=== PATIENT | female | born 1955 | race Caucasian/White ===

== ENCOUNTER 2019-02-13 20:35 | Emergency (ER) | payer OTHER, SELFPAY ==
[2019-02-13 20:38] VITALS: BP 157/77; PULSE 93; RESP 18; TEMP 36.7; O2SAT 93
--- NOTE | 2019-02-13 23:04 | ED_ITS ---
HPI - Neuro Symptoms/Deficit General Chief Complaint: Neuro Symptoms/Deficit Stated Complaint: RIGHT ARM NUMBNESS Time Seen by Provider: 02/13/19 23:04 Source: patient Mode of arrival: Ambulatory Limitations: no limitations History of Present Illness HPI Narrative: The patient awoke 3 days ago with right arm numbness or weakness. Symptoms resolved. Since then she has had intermittent numbness, but no weakness. She has no associated facial numbness weakness. She has no visual changes. She has no facial droop. She has no speech changes. She has not been confused. She has had no right lower extremity numbness or weakness. She has diabetes and hyperlipidemia. She has no history of CAD, arrhythmia, TIA or CVA she has no hypertension. She is a nonsmoker. She has had no history of head or neck injury. She is currently asymptomatic. On Anticoagulants: No Related Data Allergies Allergy/AdvReac Type Severity Reaction Status Date / Time No Known Drug Allergies Allergy Verified 02/13/19 20:42 Review of Systems Review of Systems ROS Unobtainable: All systems reviewed & are unremarkable except as noted in HPI and below Constitutional Constitutional: Denies chills, Denies fever(s) and Denies weakness Eyes Eyes: Denies change in vision, Denies eye discharge, Denies irritation and Denies loss of vision ENT Ears, Nose, Mouth, and Throat: Denies dysphagia, Denies vertigo, Denies dizziness, Denies neck pain and Denies disequilibrium Cardiovascular Cardiovascular: Denies chest pain, Denies irregular heart rhythm, Denies lightheadedness, Denies palpitations, Denies dyspnea and Denies orthopnea Respiratory Respiratory: Denies cough, Denies dyspnea and Denies wheezing Gastrointestinal Gastrointestinal: Denies dysphagia Musculoskeletal Musculoskeletal: Denies back pain, Denies myalgias and Denies neck pain Integumentary/Breasts Skin/Breast: Denies pruritus, Denies erythema, Denies rash and Denies wounds Neurologic Neurologic: Reports as per HPI, Denies confusion, Denies vertigo, Denies diz ziness, Denies loss of vision, Reports sensory deficit, Denies tremor(s), Denies disequilibrium and Denies weakness Psychiatric Psychiatric: Denies anxiety, Denies confusion and Denies depression Endocrine Endocrine: Denies palpitations Allergic/Immunologic Allergic/Immunologic: Denies wheezing Patient History Medical History (Updated 02/14/19 @ 01:16 by Dixon Dash MD) Diabetes (Acute) Hyperlipidemia (Acute) Surgical History (Updated 02/13/19 @ 23:18 by Dixon Dash MD) No significant past surgical history (Acute) Social History Smoking Status: Never smoker Smoking Status: Never smoker Exam Initial Vital Signs Initial Vital Signs: Vital Signs Temperature 98.0 F 02/13/19 20:38 Pulse Rate 93 H 02/13/19 20:38 Respiratory Rate 18 02/13/19 20:38 Blood Pressure 157/77 H 02/13/19 20:38 Pulse Oximetry 93 02/13/19 20:38 Const General: cooperative and well developed Nutritional Appearance: well nourished Orientation: alert, awake, oriented x3 and not confused HENMT Head: normocephalic and atraumatic Nose: external nose normal Face and sinus: face symmetric Mouth: oral mucosae normal and moist mucous membranes Throat: posterior oropharynx normal, tonsils normal and uvula midline Eyes General: appearance normal, both eyes and all related structures Eyelids: eyelids normal Conjunctivae: conjunctivae normal Sclera: sclerae normal Pupils: PERRL EOM: EOM intact bilaterally Neck Neck: normal visual inspection, trachea midline, No lymphadenopathy, No midline deformity and No JVD Lymphatic: No lymphedema Chest Chest: normal inspection of the chest Resp Effort & Inspection: normal respiratory effort and able to speak in complete sentences Auscultation: clear to auscultation bilaterally, no rales, no rhonchi and no wheezes Cardio Rate: regular rate Rhythm: regular rhythm Heart Sounds: S1 normal, S2 normal, no click, no gallops, no murmurs and no rubs Pulses: normal peripheral pulses GI Inspection: non-distended Palpation: soft, no hepatosplenomegaly, No guarding, No pulsatile mass and No tender Auscultation: normal bowel sounds Back/Spine/Pelvis Back: No CVA tenderness Cervical Spine: cervical ROM normal and No pain with cervical ROM Thoracic/Lumbar Spine: thoracic and lumbar spine normal to inspection Skin General: no rashes or lesions noted, No jaundice and No petechiae Neuro General: alert, oriented x3, gait normal and no focal motor deficits Speech: speech normal Motor: muscle tone normal throughout Sensory Exam: no sensory deficits noted Coordination: [id number] test normal and [id number] test normal Extrem General: full ROM, no clubbing, cyanosis or edema, no pedal edema and no calf tenderness Course Course Course Narrative: The patient has been asymptomatic since arrival. CT of the head neck, and CT of the C-spine are normal. The cause of the right arm numbness is not clear, she of may have compressed a nerve from her sleeping position. She has risk factors of hyperlipidemia and diabetes that is poorly controlled. I've asked her to start daily baby aspirin. She also has thyroid nodule, she should follow up with physician for further evaluation of the nodule. Orders Ordered: ED Orders 02/13/19 23:13 CT cervical spine wo con Stat CT head/brain wo con Stat 02/13/19 23:29 EKG-12 Lead Stat 02/13/19 23:30 Basic Metabolic Panel Stat Complete Blood Count AUTO DIFF Stat 02/13/19 23:45 Partial Thromboplastin Time Stat Prothrombin Time INR Stat Vital Signs Vital signs: Vital Signs - 8 hr 02/13/19 20:38 02/13/19 23:17 Temperature 98.0 F Pulse Rate 93 H 96 H Respiratory Rate 18 18 Blood Pressure 157/77 H Blood Pressure [Left Arm] 150/67 H Pulse Oximetry 93 95 MDM - Neuro Symptoms/Deficit Lab Data Result diagrams: 02/13/19 23:30 02/13/19 23:30 Labs: Lab Results 02/13/19 02/13/19 02/13/19 Range/Units 23:30 23:30 23:45 WBC 8.4 (4.5-11.0) X10^3/uL RBC 4.82 (4.0-5.2) X10^6/uL Hgb 14.8 (12.0-16.0) g/dL Hct 41.1 (36-46) % MCV 85.3 (80-100) fL MCH 30.6 (26-34) PG MCHC 35.9 (30-36) % RDW 14.4 (11.6-14.8) % Plt Count 242 (150-400) X10^3/uL Neut % (Auto) 60.4 (50-75) % Lymph % (Auto) 28.6 (25-40) % [place] % (Auto) 6.5 (3-14) % Eos % (Auto) 4.2 H (2-4) % Baso % (Auto) 0.3 (0-2) % Neut # (Auto) 5100 (6956-9343) /uL Lymph # (Auto) 2400 (0990-1755) /uL [place] # (Auto) 500 (0-900) /uL Eos # (Auto) 400 (0-450) /uL Baso # (Auto) 0 (0-100) /uL PT 10.9 (10.1-12.7) SECONDS INR 0.9 (0.9-1.3) APTT 28 (26.4-36.2) SECONDS Sodium 137 (137-145) mmol/L Potassium 3.5 (3.4-5.1) mmol/L Chloride 98 (98-107) mmol/L Carbon Dioxide 30 (22-32) mmol/L BUN 18 H (7-17) mg/dL Creatinine 0.60 (0.52-1.04) mg/dL Estimated GFR > 60.0 (>60) mL/min BUN/Creatinine Ratio 30.0 H (6-22) Glucose 289 H (80-110) mg/dL Calcium 9.6 (8.4-10.2) mg/dL Imaging Data CT scan - head: Radiologist's impression: No acute findings in the brain. CT C-spine:: Radiologist's impression: No acute disease in the cervical spine. Subcentimeter left thyroid nodule. ECG Data Attestation: I personally reviewed and interpreted this ECG as follows: (Normal sinus rhythm rate 86 beats per minute. IVCD. No ectopy. No arrhythmia. No acute ST T wave changes.) Discharge Plan Departure Patient Disposition: Home Clinical Impression: Right arm numbness, Hyperglycemia, Single thyroid nodule Instructions: DI for Peripheral Neuropathy Activity Restrictions/Additional Instructions: I suspect the weakness and numbness in your arm that she recently experienced may have come from a pinched nerve from the position in which you were sleeping before onset of symptoms. Evaluation reveals no evidence of a pinched nerve from the neck, or a stroke. I do suggest he take baby aspirin 1 time daily Your glucose is elevated. Be good about monitoring glucose, dietary control, and follow up with whom doctor to help control your glucose level. A thyroid nodule was discovered on the neck CT. Follow-up with her doctor for further evaluation. Return to the ER as necessary.
--- NOTE | 2019-02-13 23:13 | DI.CT.S_ITS ---
PROCEDURE: CT CERVICAL SPINE WO CON INDICATIONS: Intermittent right arm numbness/weakness TECHNIQUE: Noncontrast 3 mm thick sections acquired from the skull base to the T4 level. Sagittal and coronal reformats were then constructed. For radiation dose reduction, the following was used: automated exposure control, adjustment of mA and/or kV according to patient size. COMPARISON: None. FINDINGS: Image quality: Excellent. Bones: No fractures or dislocations. Mild degenerative disc disease in cervical spine and upper thoracic spine. Visualized superior ribs are intact. Soft tissues: Prevertebral soft tissues are normal in thickness. No paravertebral hematomas. No apical pneumothoraces. There is a 7 mm left thyroid nodule. IMPRESSION: 1. No fracture. 2. Mild degenerative disease. 3. A 7 mm left thyroid nodule. Recommend thyroid ultrasound for followup. No significant discrepancy with the maintenance technician 3rd shift radiology preliminary report. Dictated by: Charlie Michel M.D. on 02/14/2019 at 6:55 Approved by: Charlie Michel M.D. on 02/14/2019 at 8:19
--- NOTE | 2019-02-13 23:13 | DI.CT.S_ITS ---
PROCEDURE: CT HEAD/BRAIN WO CON INDICATIONS: Intermittent right arm numbness/weakness TECHNIQUE: Noncontrast 4.5 mm thick angled axial sections acquired from the foramen magnum to the vertex, with coronal and sagittal reformats. For radiation dose reduction, the following was used: automated exposure control, adjustment of mA and/or kV according to patient size. COMPARISON: None. FINDINGS: Image quality: Excellent. CSF spaces: Basal cisterns are patent. No extra-axial fluid collections. The ventricles are symmetric in size and shape. Brain: No intracranial bleeds or masses. There is mild cerebral volume loss for age, with resultant ventricular and sulcal prominence. There are mild periventricular and deep white matter chronic small vessel ischemic changes. There is intracranial internal carotid artery atherosclerosis. Skull and face: Calvarium and visualized facial bones appear intact, without suspicious lesions. Sinuses: Visualized sinuses and mastoids are clear. IMPRESSION: 1. No acute intracranial abnormalities. 2. Cerebral volume loss and chronic microvascular ischemic changes. No significant discrepancy with the warehouse worker 2nd shift radiology preliminary report. Dictated by: Charlie Michel M.D. on 02/14/2019 at 6:54 Approved by: Charlie Michel M.D. on 02/14/2019 at 8:17
[2019-02-13 23:17] VITALS: BP 150/67; PULSE 96; RESP 18; O2SAT 95
[2019-02-13 23:41] LABS: Add Manual Diff / Slide Review NO; Basophils Absolute Auto 0 /uL (0-100); Basophils Percent Auto 0.3 % (0-2); Eosinophils Absolute Auto 400 /uL (0-450); Eosinophils Percent Auto 4.2 % (2-4); Hematocrit 41.1 % (36-46); Hemoglobin 14.8 g/dL (12.0-16.0); Lymphocytes Absolute Auto 2400 /uL (1100-4500); Lymphocytes Percent Auto 28.6 % (25-40); Mean Corpuscular HGB Conc 35.9 % (30-36); Mean Corpuscular Hemoglobin 30.6 PG (26-34); Mean Corpuscular Volume 85.3 fL (80-100); Monocytes Absolute Auto 500 /uL (0-900); Monocytes Percent Auto 6.5 % (3-14); Neutrophils Absolute Auto 5100 /uL (1500-7000); Neutrophils Percent Auto 60.4 % (50-75); Platelet Count 242 X10^3/uL (150-400); Red Blood Cell Count 4.82 X10^6/uL (4.0-5.2); Red Cell Distribution Width 14.4 % (11.6-14.8); White Blood Cell Count 8.4 X10^3/uL (4.5-11.0)
[2019-02-13 23:49] LABS: Blood Urea Nitrogen 18 mg/dL (7-17); Calcium 9.6 mg/dL (8.4-10.2); Carbon Dioxide 30 mmol/L (22-32); Chloride 98 mmol/L (98-107); Estimated Glomerular Filt Rate > 60.0 mL/min (>60); Glucose 289 mg/dL (80-110); HEMOLYSIS < 15 (0-50); Potassium 3.5 mmol/L (3.4-5.1); Sodium 137 mmol/L (137-145)
[2019-02-13 23:58] LABS: INR 0.9 (0.9-1.3); Prothrombin Time 10.9 SECONDS (10.1-12.7)
[2019-02-14 00:01] LABS: PTT Partial Thromboplastin Tim 28 SECONDS (26.4-36.2)
[2019-02-14 01:34] VITALS: BP 138/81; PULSE 94; RESP 20; TEMP 36.8; O2SAT 94
[2019-02-14] MEDS: ASPIRIN EC 81 MG TABLET PO (01:34)
== END 2019-02-14 01:42 | disposition home or self-care (01) ==
PROVIDERS: Emergency Provider Emergency Medicine
DX: R20.0 Anesthesia of skin (principal); E04.1 Nontoxic single thyroid nodule; E11.65 Type 2 diabetes mellitus with hyperglycemia
CPT/HCPCS: 70450; 72125; 80048; 85025; 85610; 85730; 93005; 93010; 99284; 99285

== ENCOUNTER 2023-03-26 21:03 | Emergency (ER) | payer OTHER, SELFPAY ==
[2023-03-26 21:14] VITALS: BP 181/79; PULSE 100; RESP 18; TEMP 36.6; O2SAT 97; BMI 30.9
--- NOTE | 2023-03-26 21:46 | ED_ITS ---
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 Symptoms started after she went dancing and got hot and sweaty. She is using topical skin moisturizers that her continuous improvement specialist recommended, but she continues to be very itchy and it is causing her to lose sleep. Related Data Previous Rx's Medication Instructions Recorded betamethasone dipropionate 0.05 % 1 applic topical BID #60 mL 03/26/23 lotion Allergies Allergy/AdvReac Type Severity Reaction Status Date / Time No Known Drug Allergies Allergy Verified 02/13/19 20:42 Review of Systems Review of Systems Narrative: Otherwise negative Patient History Medical History Diabetes Hyperlipidemia Surgical History No significant past surgical history Social History Smoking Status: Never smoker Smoking Status: Never smoker Substance Use Type: does not use Exam Initial Vital Signs Initial Vital Signs: Vital Signs Temperature 97.9 F 03/26/23 21:14 Pulse Rate 100 H 03/26/23 21:14 Respiratory Rate 18 03/26/23 21:14 Blood Pressure 181/79 H 03/26/23 21:14 Pulse Oximetry 97 03/26/23 21:14 Oxygen Delivery Method Room Air 03/26/23 21:14 Const: Awake, alert, no acute distress, nontoxic appearing Skin: Warm, Dry, intact, no rashes Neuro: AO x3, CN II-XII grossly intact, moves all extremities Course Orders Ordered: Discontinued Medications Dexamethasone (Dexamethasone 10 Mg/Ml Vial) 10 mg PO NOW ONE Stop: 03/26/23 21:48 Last Admin: 03/26/23 21:54 Dose: 10 mg Documented By: CHERYL Diphenhydramine HCl (Diphenhydramine 50 Mg/Ml Vial) 50 mg IM NOW ONE Stop: 03/26/23 21:48 Last Admin: 03/26/23 21:54 Dose: 50 mg Documented By: CHERYL Vital Signs Vital signs: Vital Signs - 8 hr 03/26/23 21:14 03/26/23 22:04 Temperature 97.9 F Pulse Rate 100 H 95 H Respiratory Rate 18 22 Blood Pressure 181/79 H 156/72 H Pulse Oximetry 97 96 Oxygen Delivery Method Room Air Room Air MDM - Skin/Abscess/Foreign Bdy Differential Diagnosis Differential diagnosis: Likely abscess of skin or subcutaneous tissue, viral exanthem and dermatophytosis MDM Narrative Medical decision making narrative: Generalized pruritus, 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 Literature review shows that high potency topical steroids are 1st line of treatment. Prescription sent to pharmacy of choice. Given single dose of steroids and Benadryl while in the emergency department. Patient is a diabetic, she was counseled to monitor her sugars over the next several days and to follow up with her continuous improvement specialist, especially if she continues to feel pruritus despite using the prescribed steroid cream. Discharge Plan Departure Patient Disposition: Home Clinical Impression: [place]'s disease Instructions: DI for Atopic Dermatitis-Adult Activity Restrictions/Additional Instructions: FOLLOW UP WITH YOUR CLINICAL AUDITOR. USE THE STEROID LOTION TWICE DAILY FOR 2 WEEKS. BENADRYL AND OTHER ANTIHISTAMINES ARE HELPFUL FOR ITCHING. Prescriptions: New betamethasone dipropionate 0.05 % lotion 1 applic topical BID Qty: 60 0RF Stand Alone Forms: Patient Portal/API
[2023-03-26] MEDS: diphenhydrAMINE 50 MG/ML VIAL IM (21:54)
[2023-03-26] MEDS: DEXAMETHASONE 10 MG/ML VIAL PO (21:54)
[2023-03-26 22:04] VITALS: BP 156/72; PULSE 95; RESP 22; O2SAT 96
== END 2023-03-26 22:05 | disposition home or self-care (01) ==
PROVIDERS: Emergency Provider Emergency Medicine
DX: L11.1 Transient acantholytic dermatosis [Grover] (principal)
CPT/HCPCS: 96372; 99283; J1100; J1200

== ENCOUNTER → 2024-04-12 08:21 | Outpatient (CLI) | payer OTHER, SELFPAY | PROVIDERS: Visit Provider Registered Nurse | DX: J02.9 Acute pharyngitis, unspecified (principal) | CPT/HCPCS: 87070 ==

== ENCOUNTER 2024-09-03 21:17 | Emergency (ER) | payer OTHER, MEDICARE, SELFPAY ==
[2024-09-03 21:27] VITALS: BP 176/78; PULSE 82; RESP 18; TEMP 36.7; O2SAT 97; BMI 30.5
--- NOTE | 2024-09-03 21:30 | DI.RAD.S_ITS ---
PROCEDURE: XR CHEST 2V INDICATIONS: cough, covid + TECHNIQUE: 2 views of the chest were acquired. COMPARISON: None. FINDINGS: Surgical changes and devices: None. Lungs and pleura: Lungs are clear. No pleural effusions or pneumothorax. Mediastinum: Mediastinal contours are normal. Heart size is minimally prominent. Bones and chest wall: No suspicious bony abnormalities. Soft tissues appear unremarkable. IMPRESSION: No acute pulmonary process. Dictated by: Ankita Joyner M.D. on 09/03/2024 at 21:51 Approved by: Ankita Joyner M.D. on 09/03/2024 at 21:52
[2024-09-03 22:13] LABS: Influenza A - CEPHEID Flu A NEGATIVE (NEGATIVE); Influenza B - CEPHEID Flu B NEGATIVE (NEGATIVE)
[2024-09-03 22:36] LABS: COVID-19 CEPHEID 4-PLEX PCR POSITIVE (Negative)
--- NOTE | 2024-09-03 23:11 | ED_ITS ---
HPI - URI/Sore Throat General Chief Complaint: Upper Respiratory Symptoms Stated Complaint: cough x days covid positive Time Seen by Provider: 09/03/24 22:58 Source: patient Mode of arrival: Ambulatory History of Present Illness HPI Narrative: 68-year-old female with 4 days duration cough, had home COVID tests today that was twice positive, here for confirmation to and to discuss possible treatment. No previous documented COVID illness. Prior COVID vaccination. Denies chest pain shortness of breath. She seemed interested in antiviral therapy. Related Data Previous Rx's ?Medication ?Instructions ?Recorded nirmatrelvir 300 mg (150 mg See Rx Instructions PO .CO MPLEX 09/03/24 x2)-ritonavir 100 mg tablet,dose #30 ea pack (Paxlovid) Allergies Allergy/AdvReac Type Severity Reaction Status Date / Time No Known Drug Allergies Allergy Verified 09/03/24 21:27 Patient History Medical History Diabetes Hyperlipidemia Surgical History No significant past surgical history Social History Smoking Status: Never smoker Smoking Status: Never smoker Exam Narrative Exam Narrative: GENERAL: Well-developed patient, in mild distress. HEAD: Atraumatic. Normocephalic. EYES: Pupils equal round and reactive. Extraocular motions intact. No scleral icterus. No injection or drainage. ENT: Nose without bleeding, purulent drainage. Throat without erythema, tonsillar hypertrophy or exudate. Airway patent. NECK: Trachea midline. Non tender CARDIOVASCULAR: Regular rate and rhythm without murmurs, gallops, or rubs. RESPIRATORY: Clear to auscultation. Breath sounds equal bilaterally. No wheezes, rales, or rhonchi. GASTROINTESTINAL: Abdomen soft, non-tender, nondistended. EXTREMITIES: No edema or joint tenderness. BACK: Nontender without deformity or crepitance. No flank tenderness. NEURO: AOx3. Motor functions grossly nonfocal. SKIN: No rash or erythema of visible areas Initial Vital Signs Initial Vital Signs: Vital Signs Temperature 98.0 F 09/03/24 21:27 Pulse Rate 82 09/03/24 21:27 Respiratory Rate 18 09/03/24 21:27 Blood Pressure 176/78 H 09/03/24 21:27 Pulse Oximetry 97 09/03/24 21:27 Oxygen Delivery Method Room Air 09/03/24 21:27 Course Orders Ordered: ED Orders 09/03/24 21:30 CXR [XR chest 2V] Stat 09/03/24 21:33 Covid-19 + FLU A/B + RSV - PCR Stat Vital Signs Vital signs: Vital Signs - 8 hr 09/03/24 21:27 09/03/24 23:44 Temperature 98.0 F Pulse Rate 82 80 Respiratory Rate 18 18 Blood Pressure 176/78 H 157/72 H Pulse Oximetry 97 93 Oxygen Delivery Method Room Air Room Air MDM - URI/Sore Throat Lab Data Attestation: I reviewed the patient's lab results. Lab results narrative: COVID positive, flu and RSV negative. Labs: Lab Results 09/03/24 Range/Units 21:33 SARS-CoV-2 (PCR) Positive H (Negative) Influenza A (RT-PCR) Flu a negative (NEGATIVE) Influenza B (RT-PCR) Flu b negative (NEGATIVE) RSV (PCR) Negative (Negative) MDM Narrative Medical decision making narrative: 68-year-old female with 4 days duration of cough, home COVID test positive, here for confirmation and to discuss possible treatment options. COVID swab here positive, flu negative. Symptoms or less than 5 days. We discussed Paxlovid therapy, as she has risk factors of age 68 and also history of diabetes, she has had prior primary COVID vaccination. She would like to try Paxlovid therapy. Symptoms less than 5 days. Advise antiviral therapy can cause GI side effects. Might lessen the length and severity of illness. She would like to proceed antiviral therapy. Prescription for Paxlovid regimen 5 day course sent to her pharmacy. Advised to wear mask around other persons in the next few days. Consider self isolation for the next 5 days. Tylenol and or Motrin advised for pain control. Return for increasing shortness of breath, weakness, unexplained fevers, if not improving on antiviral therapy in the next couple of days, or any time for any concerns prior. Discharged home with . Discharge Plan Departure Patient Disposition: Home Clinical Impression: COVID-19 Instructions: DI for COVID-19 (Suspected or Confirmed ) Activity Restrictions/Additional Instructions: Recent 4 days cough symptoms, home COVID test positive, here for confirmation. COVID test positive here as well. No respiratory distress, no oxygen requirement, lungs clear on examination without respiratory distress. We discus sed treatment options antiviral, which can be offered less than 5 days duration of symptoms. Paxlovid antiviral not available here in the emergency department but at many pharmacies. We will send Paxlovid prescription for 5 day course to your pharmacy requested. Take Paxlovid antiviral regimen as prescribed and start as soon as possible. Consider wearing mask out in public next 5 days or so. Consider self isolation for 5 days from onset of symptoms which should be fairly soon. Return to this/nearest emergency department for any change worsening symptoms or any concerns prior. Prescriptions: New Paxlovid 300 mg (150 mg x 2)-100 mg tablets,dose pack See Rx Instructions .ROUTE .COMPLEX Qty: 30 0RF Rx Instructions: take TWO 150 mg tablets of nirmatrelvir with ONE 100 mg tablet of ritonavir twice daily for 5 days Referrals: Miscellaneous,Doctor, MD [Primary Care Provider, Medical] Stand Alone Forms: Patient Portal/API
[2024-09-03 23:44] VITALS: BP 157/72; PULSE 80; RESP 18; O2SAT 93
== END 2024-09-03 23:58 | disposition home or self-care (01) ==
PROVIDERS: Emergency Provider Emergency Medicine
DX: U07.1 COVID-19 (principal)
CPT/HCPCS: 71046; 87637; 99281; 99283